=== PATIENT | female | born 1955 | race Caucasian/White ===

== ENCOUNTER → 2023-07-06 10:28 | Outpatient (REF) | payer MEDICARE, SELFPAY | LOC: HWRAD 10:28 | PROVIDERS: ATTENDING PHYSICIAN Internal Medicine; FAMILY PHYSICIAN Family Medicine | DX: R10.10 Upper abdominal pain, unspecified (principal) | CPT/HCPCS: 76700 ==

== ENCOUNTER 2023-10-03 18:26 | Emergency (ER) | payer MEDICARE, SELFPAY ==
[2023-10-03 18:29] VITALS: BP 149/95
[2023-10-03 18:45] VITALS: BMI 18.6
--- NOTE | 2023-10-03 18:53 | ED.GENMED ---
History of Present Illness
General
Chief Complaint: Skin Problem
Time Seen by Provider: 10/03/23 18:37
Travel History
Have you had any contact with someone who has COVID-19?: No
Do you have any symptoms of coronavirus? Fever > 100 degrees, chills, cough, shortness of breath, sore throat, loss of taste or smell, muscle aches, or headache?: No
History of Present Illness
History of Present Illness:
68-year-old female presents to the emergency department for evaluation of a rash behind the left knee ongoing for 2 weeks. It is slightly warm and tender to touch. She states she does have numerous ticks around her residence is has been bitten
many times. Denies any fevers or chills. No leg swelling or calf cramping
Past History
Past History
ED Past Medical History: Hypercholesterolemia; Negative HTN, IDDM or NIDDM
Social History
Tobacco: Non-smoker
Personal:
Family History
Family History: CAD
Review of Systems
Review of Systems
Allergies reviewed?: Yes
All Other Systems: ROS reviewed and negative except as documented in HPI and ROS
Phy Exam
Physical Exam
Physical Exam:
GEN: Well appearing, NAD, WDWN
HEENT: Oral mucosa moist, no scleral icterus
Cardiac: Regular rate
Lung: No respiratory distress, no tachypnea
MSK: No gross deformity or injuries
Skin: Good color, no pallor or jaundice, Targetoid lesion measuring approximately 3.5 cm just superior to the left popliteal space, no induration or tenderness
Neuro: AO x3, moves all extremities freely
Psych: Calm, cooperative
Course
Orders/Labs/Results
Orders:
Orders
10/03/23 18:52
Doxycycline [Vibramycin] 100 mg PO NOW STA
Vital Signs
Initial and Last Documented VS:
Initial Vital Signs
Temp Pulse Resp BP Pulse Ox
98.8 F 82 16 149/95 98
10/03/23 18:29 10/03/23 18:29 10/03/23 18:29 10/03/23 18:29 10/03/23 18:29
Last Documented Vital Signs
Temp Pulse Resp BP Pulse Ox
98.8 F 82 16 149/95 98
10/03/23 18:29 10/03/23 18:29 10/03/23 18:29 10/03/23 18:29 10/03/23 18:29
MDM/Problems Addressed
MDM/Problems Addressed:
Lesion is suspicious for erythema migrans, will treat for early Lyme with 14-day Doxy, no indication for Lyme titer given the early stage
*Critical Care Note
Total Time (30-74mins, 75-104mins- exclusive of procedures): Not Applicable
ED Attending Note
-
Portions of this chart may have been created with voice recognition software.� Occasional wrong word or��sound alike� substitutions may have occurred due to the inherent limitations of voice recognition software.
Discharge Plan
Departure
Patient Disposition: Home (Routine Discharge)
Date of Disposition: 10/03/23
Time of Disposition: 18:53
Patient with high blood pressure during this ER visit?: No
Discharge Problem:
Erythema migrans (Lyme disease)
Instructions: Lyme Disease (DC)
Prescriptions:
New
doxycycline monohydrate 100 mg capsule
100 mg PO BID 14 Days Qty: 27 0RF
Rx Instructions:
First dose given in ED
No Action
bupropion HCl [Wellbutrin] 100 MG tablet
100 mg PO HS
bupropion HCl [Wellbutrin XL] 300 MG tablet extended release 24 hr
300 mg PO .AM
Interventions
Interventions:
*Risk Screen - Suicide Last Done: 10/03/23 18:45
*General Assessment Last Done: 10/03/23 18:46
*Neglect/Abuse Screening Last Done: 10/03/23 18:45
ED- Fall Risk Assessment Last Done: 10/03/23 18:45
*ED COVID-19 Vaccine History Last Done: 10/03/23 18:29
*Nursing Disposition Last Done: 10/03/23 19:01
ED-Skin Assessment Last Done: 10/03/23 18:46
Discharge Date and Time
Discharge Date/Time: 10/03/23 19:02
Print Language: MONGOLIAN
[2023-10-03] MEDS: VIBRAMYCIN 100 MG PO (18:55)
== END 2023-10-03 19:02 | disposition home or self-care (01) ==
LOC: EMR 18:26
PROVIDERS: EMERGENCY PHYSICIAN Student in an Organized Health Care Education/Training Program; FAMILY PHYSICIAN Family Medicine
DX: A69.20 Lyme disease, unspecified (principal); E78.00 Pure hypercholesterolemia, unspecified; Z82.49 Family history of ischemic heart disease and other diseases of the circulatory system
CPT/HCPCS: 99283

== ENCOUNTER → 2024-03-17 13:41 | Outpatient (REF) | payer MEDICARE, SELFPAY | LOC: WDC 13:41 | PROVIDERS: ATTENDING PHYSICIAN Family Medicine | DX: Z12.31 Encounter for screening mammogram for malignant neoplasm of breast (principal) | CPT/HCPCS: 77063; 77067 ==

== ENCOUNTER → 2024-06-16 09:04 | Outpatient (REF) | payer MEDICARE, SELFPAY | LOC: RAD 09:04 | PROVIDERS: ATTENDING PHYSICIAN Internal Medicine; FAMILY PHYSICIAN Family Medicine | DX: N95.1 Menopausal and female climacteric states (principal); M81.0 Age-related osteoporosis without current pathological fracture | CPT/HCPCS: 77080 ==